=== PATIENT | female | born 1980 | race Caucasian/White ===

== ENCOUNTER 2016-10-08 17:56 | Emergency (ER) | payer SELFPAY ==
[2016-10-08 18:06] VITALS: BP 113/74; BMI 38.7
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
[2016-10-08 19:13] LABS: SERUM PREGNANCY TEST, QUAL NEGATIVE <10 mIU/mL
--- NOTE | 2016-10-08 19:36 | RAD ---
EXAM: Left hand x-ray INDICATION: Pain COMPARISION: No priors for comparison TECHNIQUE: AP and lateral, 2 views FINDINGS: No acute fracture or dislocation. The joint spaces are preserved. The soft tissues are normal. No ra diopaque foreign body. IMPRESSION: Normal left hand x-ray exam Reported By:
--- NOTE | 2016-10-08 19:36 | RAD ---
EXAM: Left shoulder x-ray INDICATION: Shoulder pain COMPARISION: No priors for comparison TECHNIQUE: Lateral and AP with internal and external rotation, 3 views FINDINGS: Moderate degenerative arthropathy is present at the acromioclavicular joint. The glenohumeral joint appears unremarkable. No acute fracture or dislocation. There are 2 calcific densities in the soft t issues along the lateral aspect of the humeral head, both measure approximately 2 mm. IMPRESSION: Moderate arthropathy noted at the acromioclavicular joint. Soft tissue calcifications seen along the lateral aspect of the humeral head could represent calcific tendinopathy. No acute abnormality. Reported By:
== END 2016-10-08 20:00 | disposition home or self-care (01) ==
LOC: ER 18:12
DX: M12.9 Arthropathy, unspecified (principal); X58.XXXA Exposure to other specified factors, initial encounter
CPT/HCPCS: 36415; 73030; 73130; 84703; 99282; 99283